=== PATIENT | male | born 1970 | race Caucasian/White ===

== ENCOUNTER → 2016-11-18 | Outpatient (CLI) | payer OTHER ==
[~2016-11-18] MED LIST: ASPI-113 PO; CYAN10004 PO; IBUP-1050 PO; MULT-506 PO; PRLSR20 PO
--- NOTE | 2016-11-18 17:00 | DIAGNOSTIC IMAGING REPORT ---
LEFT LOWER EXTREMITY VENOUS DOPPLER CLINICAL HISTORY: Left calf pain. COMPARISON STUDY: Left lower extremity venous Doppler January 27, 2013. TECHNIQUE: Sonography of the deep venous system of the left lower extremity was performed. Compression and augmentation were evaluated. FINDINGS: The common femoral, superficial femoral and popliteal veins were compressible. Augmentation was normal. Flow was shown within the deep calf vessels. Minimal echogenic material adherent to the wall of the left femoral vein likely reflects calcification. This suggests chronic change. This is not acute. Left calf varicosities were noted. No thrombus was identified within these varicosities. IMPRESSION: 1. No evidence of acute deep venous thrombus within the left lower extremity. 2. Minimal calcification adherent to the wall of the left femoral vein. This finding is chronic and could reflect minimal chronic thrombus. 3. Patent left calf varicosities. Electronically signed by: Ruy Beasley M.D. 11/18/2016 4:59 PM Dictated Date/Time: 11/18/2016 4:56 PM
== END | disposition home or self-care (01) ==
LOC: C.ULTR 16:16
DX: I83.812 Varicose veins of left lower extremity with pain (principal)